=== PATIENT | female | born 1945 | race Caucasian/White ===

== ENCOUNTER → 2023-09-05 | Outpatient (CLI) | payer MEDICARE, OTHER | END | disposition home or self-care (01) | LOC: RESCLI 13:29 | PROVIDERS: ATTEND Internal Medicine | DX: I95.1 Orthostatic hypotension (principal); I50.20 Unspecified systolic (congestive) heart failure; E55.9 Vitamin D deficiency, unspecified; I48.91 Unspecified atrial fibrillation; E78.5 Hyperlipidemia, unspecified; K50.90 Crohn's disease, unspecified, without complications; E03.9 Hypothyroidism, unspecified; M81.0 Age-related osteoporosis without current pathological fracture; Z88.5 Allergy status to narcotic agent; Z88.8 Allergy status to other drugs, medicaments and biological substances; Z87.891 Personal history of nicotine dependence; Z82.49 Family history of ischemic heart disease and other diseases of the circulatory system; Z98.890 Other specified postprocedural states; Z79.01 Long term (current) use of anticoagulants; Z79.899 Other long term (current) drug therapy ==